=== PATIENT | female | born 1935 | race Caucasian/White ===

== ENCOUNTER 2021-07-12 12:57 | Inpatient (IN) | payer OTHER ==
[~2021-07-12] VITALS: Ht 170.2 cm; Wt 131.5 kg
[2021-07-12 14:07] LABS: HEMOGLOBIN 12.6 gm/dl (12.3-15.3); RED BLOOD COUNT 4.04 M/UL (4.00-5.10); WHITE BLOOD COUNT 7.4 K/UL (4.5-11.0)
[2021-07-12] MEDS ORDERED: CEPHALEXIN500 MG PO (18:39)
[2021-07-12] MEDS ORDERED: HYDROCODON-ACE1 EAC2 PO (18:39)
[2021-07-12] MEDS ORDERED: CARVEDILOL6.25 MG PO (18:40)
[2021-07-12] MEDS ORDERED: DONEPEZIL HCL10 MG PO (18:42)
[2021-07-12] MEDS ORDERED: CYANOCOBAL1000 MCG/1 INJ (18:42)
[2021-07-12] MEDS ORDERED: HYDROCHLOROTHIA25 MG PO (18:42)
[2021-07-12] MEDS ORDERED: OXYBUTYNIN CHLOR5 MG PO (18:42)
[2021-07-12] MEDS ORDERED: WELLBUTRIN XL300 MG PO (18:43)
[2021-07-12] MEDS ORDERED: EFFEXOR XR75 MG PO (18:43)
[2021-07-12] MEDS ORDERED: LOSARTAN POTAS100 MG PO (18:44)
[2021-07-12] MEDS ORDERED: LEVOTHYROXINE150 MCG PO (18:44)
[2021-07-12] MEDS ORDERED: VITAMIN E400 UNI1 PO (18:45)
[2021-07-12] MEDS ORDERED: VITAMIN D325 MCG PO (18:45)
[2021-07-12] MEDS ORDERED: DAILY VALUE1 EACH PO (18:45)
[2021-07-13 06:02] LABS: HEMOGLOBIN 13.5 gm/dl (12.3-15.3); RED BLOOD COUNT 4.28 M/UL (4.00-5.10)
[2021-07-13 06:05] LABS: WHITE BLOOD COUNT 9.6 K/UL (4.5-11.0)
[2021-07-15 03:35] LABS: HEMOGLOBIN 13.7 gm/dl (12.3-15.3); RED BLOOD COUNT 4.41 M/UL (4.00-5.10); WHITE BLOOD COUNT 8.2 K/UL (4.5-11.0)
[2021-07-17 05:50] LABS: HEMOGLOBIN 12.7 gm/dl (12.3-15.3); RED BLOOD COUNT 4.1 M/UL (4.00-5.10)
--- NOTE | 2021-07-17 14:19 | NUR ---
WOUND CARE PERFORMED PER PHYSICIAN'S ORDER. PATIENT TOLERATED WELL.
--- NOTE | 2021-07-18 15:44 | NUR ---
WOUND CARE PERFORMED PER PHYSICIAN'S ORDER. PATIENT TOLERATED WELL. MD AT BEDSIDE TO EVALUATE WOUNDS.
[2021-07-19 08:18] LABS: HEMOGLOBIN 12.5 gm/dl (12.3-15.3); RED BLOOD COUNT 4.03 M/UL (4.00-5.10); WHITE BLOOD COUNT 7.7 K/UL (4.5-11.0)
[2021-07-20 07:27] LABS: HEMOGLOBIN 12.2 gm/dl (12.3-15.3); RED BLOOD COUNT 4.05 M/UL (4.00-5.10); WHITE BLOOD COUNT 7.5 K/UL (4.5-11.0)
[2021-07-20] MEDS ORDERED: LEVOFLOXACIN500 MG PO (12:34)
[2021-07-20] MEDS ORDERED: GABAPENTIN100 MG PO (12:34)
[2021-07-20] MEDS ORDERED: BACTROBAN OINT22 GM EXT (12:34)
[2021-07-20] MEDS ORDERED: ASPIRIN EC81 MG PO (12:34)
== END 2021-07-20 13:58 | disposition home or self-care (01) | DRG 603 ==
LOC: ER1 12:57 → M/S 16:01 → CDU 16:01 → M/S 16:01
PROVIDERS: Internal Medicine; Physician Assistant; Student in an Organized Health Care Education/Training Program; ADMIT Internal Medicine
DX: L03.116 Cellulitis of left lower limb (principal); N17.9 Acute kidney failure, unspecified; I13.0 Hypertensive heart and chronic kidney disease with heart failure and stage 1 through stage 4 chronic kidney disease, or unspecified chronic kidney disease; E87.3 Alkalosis; L03.115 Cellulitis of right lower limb; Z20.822 Contact with and (suspected) exposure to COVID-19; T50.2X5A Adverse effect of carbonic-anhydrase inhibitors, benzothiadiazides and other diuretics, initial encounter; I25.10 Atherosclerotic heart disease of native coronary artery without angina pectoris; I87.2 Venous insufficiency (chronic) (peripheral); E03.9 Hypothyroidism, unspecified; Z95.1 Presence of aortocoronary bypass graft; E66.01 Morbid (severe) obesity due to excess calories; N18.30 Chronic kidney disease, stage 3 unspecified; B96.5 Pseudomonas (aeruginosa) (mallei) (pseudomallei) as the cause of diseases classified elsewhere; M19.90 Unspecified osteoarthritis, unspecified site; I50.9 Heart failure, unspecified; Z82.49 Family history of ischemic heart disease and other diseases of the circulatory system; Z98.890 Other specified postprocedural states
CPT/HCPCS: 36415; 80048; 80053; 80202; 85025; 87040; 87070; 87077; 87186; 87205; 96372; 96374; 96375; 96376; 97161; 97166; 99284; G0378; J0696; J1650; J2270; J2543; J3370; J7050; J7070; U0002

== ENCOUNTER → 2021-07-27 | Outpatient (CLI) | payer OTHER ==
[~2021-07-27] MED LIST: ASPIRIN EC81 MG PO; BACTROBAN OINT22 GM EXT; CARVEDILOL6.25 MG PO; CEPHALEXIN500 MG PO; CYANOCOBAL1000 MCG/1 INJ; DAILY VALUE1 EACH PO; DONEPEZIL HCL10 MG PO; EFFEXOR XR75 MG PO; GABAPENTIN100 MG PO; HYDROCHLOROTHIA25 MG PO; HYDROCODON-ACE1 EAC2 PO; LEVOFLOXACIN500 MG PO; LEVOTHYROXINE150 MCG PO; LOSARTAN POTAS100 MG PO; OXYBUTYNIN CHLOR5 MG PO; VITAMIN D325 MCG PO; VITAMIN E400 UNI1 PO; WELLBUTRIN XL300 MG PO
[2021-07-27 12:06] LABS: HEMOGLOBIN 13.4 gm/dl (12.3-15.3); RED BLOOD COUNT 4.32 M/UL (4.00-5.10); WHITE BLOOD COUNT 9.9 K/UL (4.5-11.0)
== END ==
LOC: LAB 11:00
PROVIDERS: Family Medicine
DX: E03.9 Hypothyroidism, unspecified (principal); E53.8 Deficiency of other specified B group vitamins; E55.9 Vitamin D deficiency, unspecified; I10 Essential (primary) hypertension; M54.50 Low back pain, unspecified; G89.29 Other chronic pain; R05.9 Cough, unspecified; M47.816 Spondylosis without myelopathy or radiculopathy, lumbar region
CPT/HCPCS: 36415; 71046; 72110; 80053; 80061; 82607; 84439; 84443; 85027

== ENCOUNTER → 2021-08-03 | Outpatient (CLI) | payer OTHER | LOC: WCC 07:33 | DX: L03.116 Cellulitis of left lower limb (principal); L03.115 Cellulitis of right lower limb; G47.30 Sleep apnea, unspecified; I25.10 Atherosclerotic heart disease of native coronary artery without angina pectoris; I10 Essential (primary) hypertension; I73.9 Peripheral vascular disease, unspecified; I87.2 Venous insufficiency (chronic) (peripheral) | CPT/HCPCS: G0463 ==

== ENCOUNTER → 2021-08-04 | Outpatient (CLI) | payer OTHER | LOC: RAD 12:37 | DX: M25.561 Pain in right knee (principal); M17.11 Unilateral primary osteoarthritis, right knee | CPT/HCPCS: 73564 ==

== ENCOUNTER → 2021-08-10 | Outpatient (CLI) | payer OTHER | LOC: WCC 08:14 | DX: L03.116 Cellulitis of left lower limb (principal); L03.115 Cellulitis of right lower limb; I87.323 Chronic venous hypertension (idiopathic) with inflammation of bilateral lower extremity; E66.9 Obesity, unspecified; I10 Essential (primary) hypertension; Z79.82 Long term (current) use of aspirin; Z68.42 Body mass index [BMI] 45.0-49.9, adult; G47.30 Sleep apnea, unspecified; I25.10 Atherosclerotic heart disease of native coronary artery without angina pectoris; G60.9 Hereditary and idiopathic neuropathy, unspecified ==

== ENCOUNTER → 2021-08-17 | Outpatient (CLI) | payer OTHER | LOC: WCC 08:14 | DX: L03.116 Cellulitis of left lower limb (principal); L03.115 Cellulitis of right lower limb; I25.10 Atherosclerotic heart disease of native coronary artery without angina pectoris; I10 Essential (primary) hypertension; G47.30 Sleep apnea, unspecified; I73.9 Peripheral vascular disease, unspecified; I87.2 Venous insufficiency (chronic) (peripheral); I87.323 Chronic venous hypertension (idiopathic) with inflammation of bilateral lower extremity | CPT/HCPCS: 97597; 97598 ==

== ENCOUNTER → 2021-08-24 | Outpatient (CLI) | payer OTHER | LOC: WCC 08:13 | DX: I73.9 Peripheral vascular disease, unspecified (principal); G47.30 Sleep apnea, unspecified; I25.10 Atherosclerotic heart disease of native coronary artery without angina pectoris; I10 Essential (primary) hypertension; G60.9 Hereditary and idiopathic neuropathy, unspecified; I87.2 Venous insufficiency (chronic) (peripheral); I87.323 Chronic venous hypertension (idiopathic) with inflammation of bilateral lower extremity | CPT/HCPCS: G0463 ==

== ENCOUNTER → 2021-09-01 | Outpatient (CLI) | payer OTHER | LOC: WCC 07:40 | DX: L03.116 Cellulitis of left lower limb (principal); L03.115 Cellulitis of right lower limb; B96.5 Pseudomonas (aeruginosa) (mallei) (pseudomallei) as the cause of diseases classified elsewhere; I87.2 Venous insufficiency (chronic) (peripheral); L97.909 Non-pressure chronic ulcer of unspecified part of unspecified lower leg with unspecified severity; I87.323 Chronic venous hypertension (idiopathic) with inflammation of bilateral lower extremity; I11.9 Hypertensive heart disease without heart failure; I73.9 Peripheral vascular disease, unspecified; G60.9 Hereditary and idiopathic neuropathy, unspecified; E66.9 Obesity, unspecified; Z68.42 Body mass index [BMI] 45.0-49.9, adult; G89.29 Other chronic pain; M25.551 Pain in right hip; M25.552 Pain in left hip; M25.561 Pain in right knee; M25.562 Pain in left knee; I25.10 Atherosclerotic heart disease of native coronary artery without angina pectoris; G47.30 Sleep apnea, unspecified; I25.2 Old myocardial infarction | CPT/HCPCS: G0463 ==

== ENCOUNTER → 2021-09-08 | Outpatient (CLI) | payer OTHER | LOC: WCC 08:38 | DX: L03.116 Cellulitis of left lower limb (principal); L03.115 Cellulitis of right lower limb; I87.323 Chronic venous hypertension (idiopathic) with inflammation of bilateral lower extremity; M79.662 Pain in left lower leg; M79.661 Pain in right lower leg; I11.9 Hypertensive heart disease without heart failure; I73.9 Peripheral vascular disease, unspecified; G62.9 Polyneuropathy, unspecified; E66.9 Obesity, unspecified; G47.30 Sleep apnea, unspecified; I25.10 Atherosclerotic heart disease of native coronary artery without angina pectoris; I87.2 Venous insufficiency (chronic) (peripheral) | CPT/HCPCS: G0463 ==

== ENCOUNTER → 2021-09-28 | Outpatient (CLI) | payer OTHER | LOC: WCC 09:58 | DX: L03.116 Cellulitis of left lower limb (principal); L03.115 Cellulitis of right lower limb; I73.9 Peripheral vascular disease, unspecified; E66.9 Obesity, unspecified; G47.30 Sleep apnea, unspecified; I25.10 Atherosclerotic heart disease of native coronary artery without angina pectoris; I10 Essential (primary) hypertension; G60.9 Hereditary and idiopathic neuropathy, unspecified; I87.2 Venous insufficiency (chronic) (peripheral); I87.323 Chronic venous hypertension (idiopathic) with inflammation of bilateral lower extremity; M79.662 Pain in left lower leg; M79.661 Pain in right lower leg | CPT/HCPCS: G0463 ==

== ENCOUNTER → 2021-10-13 | Outpatient (CLI) | payer OTHER ==
[2021-10-14 07:12] LABS: HEMOGLOBIN A1C 5.7 % (4.8-5.6)
== END ==
LOC: LAB 12:09
PROVIDERS: Family Medicine
DX: E53.8 Deficiency of other specified B group vitamins (principal); R94.4 Abnormal results of kidney function studies; I10 Essential (primary) hypertension; R73.9 Hyperglycemia, unspecified
CPT/HCPCS: 36415; 80048; 82607; 83036

== ENCOUNTER → 2021-10-29 | Outpatient (CLI) | payer OTHER | LOC: WCC 07:33 | DX: L03.115 Cellulitis of right lower limb (principal); L03.116 Cellulitis of left lower limb; M79.662 Pain in left lower leg; M79.661 Pain in right lower leg; G47.30 Sleep apnea, unspecified; I25.10 Atherosclerotic heart disease of native coronary artery without angina pectoris; I10 Essential (primary) hypertension; I73.9 Peripheral vascular disease, unspecified; G60.9 Hereditary and idiopathic neuropathy, unspecified; I87.2 Venous insufficiency (chronic) (peripheral); I87.323 Chronic venous hypertension (idiopathic) with inflammation of bilateral lower extremity | CPT/HCPCS: G0463 ==

== ENCOUNTER → 2021-12-17 | Outpatient (CLI) | payer OTHER | LOC: EXRD 11:23 | DX: M54.6 Pain in thoracic spine (principal); G89.29 Other chronic pain; M25.78 Osteophyte, vertebrae; M41.9 Scoliosis, unspecified | CPT/HCPCS: 72070 ==

== ENCOUNTER → 2022-04-22 | Outpatient (CLI) | payer OTHER | LOC: KOH-I 08:00 → CT 08:00 → KOH-I 10:05 | DX: R51.9 Headache, unspecified (principal); M54.2 Cervicalgia; S02.31XA Fracture of orbital floor, right side, initial encounter for closed fracture; W19.XXXA Unspecified fall, initial encounter | CPT/HCPCS: 70450; 70486; 72125 ==